=== PATIENT | male | born 1965 | race African-American/Black ===

== ENCOUNTER 2022-10-04 04:33 | Emergency (ER) | payer MEDICAID, MEDICARE ==
[~2022-10-04] VITALS: Ht 175.3 cm; Wt 79.0 kg
[2022-10-04] MEDS ORDERED: SODIUM CHLORIDE 0.9% 1,000 ML IV ONE (06:00)
[2022-10-04] MEDS ORDERED: MAGNESIUM/ALUMINUM HYDROXIDE/SIMETHICONE 30ML UDC PO STA (06:00)
[2022-10-04] MEDS ORDERED: ONDANSETRON HCL 4MG/2ML INJ IV STA (06:00)
[2022-10-04] MEDS ORDERED: FAMOTIDINE 20MG/2ML VIAL IV STA (06:00)
[2022-10-04 06:21] LABS: BASOPHILS % 0.6 % (0.0-2.0); EOSINOPHILS % 1.1 % (0.0-5.0); HEMATOCRIT. 53.7 % (42.0-52.0); HEMOGLOBIN. 18.4 g/dL (14.0-18.0); LYMPHOCYTES % 21.4 % (20.0-50.0); MEAN CORPUSCULAR HEMOGLOBIN 33.8 pg (28.0-32.0); MEAN CORPUSCULAR VOLUME 98.7 fL (80.0-94.0); MEAN PLATELET VOLUME 8.1 fl (7.4-10.4); MONOCYTES % 6.2 % (2.0-8.0); NEUTROPHILS % 70.7 % (40.0-76.0); PLATELET 335 x1000/uL (130-400); RED BLOOD CELL COUNT 5.44 mill/uL (4.7-6.1); RED CELL DISTRIBUTION WIDTH 13.7 % (11.6-14.6)
[2022-10-04 06:34] LABS: CHLORIDE 110 mEq/L (98-107)
[2022-10-04] MEDS ORDERED: HYDROCODONE/ACETAMINOPHEN 5/325MG TABLET PO ONE (07:00)
[2022-10-04] MEDS ORDERED: HYDROMORPHONE HCL/PF 2MG/ML CPJ IV ONE ×2 (07:30→10:30)
[2022-10-04] MEDS ORDERED: IOHEXOL-300 100 ML BOTTLE ONE (08:57)
[2022-10-04] MEDS ORDERED: MAGNESIUM/ALUMINUM HYDROXIDE/SIMETHICONE 30ML UDC PO NR (09:15)
[2022-10-04 11:30] VITALS: BP 141/90
== END 2022-10-04 11:46 | disposition home or self-care (01) ==
LOC: ER 04:33
DX: K86.1 Other chronic pancreatitis (principal); Z88.6 Allergy status to analgesic agent; Z90.49 Acquired absence of other specified parts of digestive tract
CPT/HCPCS: 36415; 74177; 80053; 83690; 85025; 96361; 96374; 96375; 96376; 99285; J1170; J2405; J3490; J7030; Q9967; Z7610